=== PATIENT | female | born 1990 | race African-American/Black ===

== ENCOUNTER 2016-11-18 20:23 | Emergency (ER) | payer SELFPAY ==
[2016-11-18 20:31] VITALS: TEMP 98.3; BMI 25.1
[2016-11-18 21:12] LABS: URINE APPEARANCE CLEAR; URINE BILIRUBIN NEGATIVE (NEGATIVE); URINE BLOOD NEGATIVE (NEGATIVE); URINE COLOR YELLOW; URINE GLUCOSE (UA) NEGATIVE (NEGATIVE); URINE KETONE NEGATIVE (NEGATIVE); URINE LEUK ESTERASE NEGATIVE (NEGATIVE); URINE NITRITE NEGATIVE (NEGATIVE); URINE PROTEIN NEGATIVE (NEGATIVE); URINE UROBILINOGEN NEGATIVE mg/dL (0.2-1.0)
[2016-11-18] MEDS ORDERED: AZITHROMYCIN 1 GM PACKET PO ONE (21:31)
[2016-11-18] MEDS ORDERED: AZITHROMYCIN 1 GM PACKET ONE (21:35)
[2016-11-18] MEDS ORDERED: cefTRIAXone SODIUM 1 GM VIAL ONE (21:35)
--- NOTE | 2016-11-18 21:41 | PDOC ---
History of Present Illness - General Chief Complaint: Vaginal Bleeding Stated Complaint: VAGINAL BLEEDING Time Seen by Provider: 11/18/16 20:33 History Source: Patient Exam Limitations: No Limitations - History of Present Illness Travel History: No Initial Comments: 11/18/16 21:32 26yo Female patient with no significant past medical history presents to ED c/o vaginal spotting for past 5 days. Patient states bleeding occurs during sex then resolves. She states having unprotected sex with partner of 1 year. LNMP: . She denies abd pain, n/v/d, pain during sex, dysuria, hematuria, back pain, diff breathing, rash, or any other complaints. She state she is not taking any medications at this time, and does have a PCP or [facility] [employer]. Timing/Duration: reports: getting worse Quality: reports: moderate Abdominal Pain Onset Location: denies: RUQ, LUQ, RLQ, LLQ, epigastric, periumbilical, suprapubic, generalized abdomen, flank, unknown, other Pain Radiation: denies: no radiation, RUQ, LUQ, RLQ, LLQ, epigastric, periumbilical, flank, groin, scapula, shoulder, chest, back, other Activities at Onset: denies: none, exertion, emotional upset, rest, sleep, no specific activity, eating, working, sexual intercourse, other Treatment Prior to Arrive: worse with: analgesics, antacids, cold pack, heat, laxative, enema, other Aggravating Factors: worse with: None, Defecation, Eating, Emotional upset, Exertion, [place], Movement, Voiding, Change in position Alleviating Factors: worse with: None, Belching, Shallow Breathing, Defecation, Eating, Holding Breath, Passing Gas, Change in Position, Rest, Voiding, Vomiting Past History - Travel Traveled outside of the country in the last 30 days: No Close contact w/someone who was outside of country & ill: No - Past Medical History Allergies/Adverse Reactions: Allergies Allergy/AdvReac Type Severity Reaction Status Date / Time No Known Allergies Allergy Verified 11/18/16 20:29 Home Medications: Ambulatory Orders Doxycycline Hyclate [Vibramycin -] 100 mg PO BID #14 cap 11/18/16 Metronidazole [Flagyl -] 2,000 mg PO ONCE #4 tablet 11/18/16 - Reproductive History Is Patient Now?: No (#): 0 - Psycho/Social/Smoking Cessation Hx Suicidal Ideation: No Smoking History: Never smoked Abd/GI Specific PMHX - Complaint Specific PMHX Colitis: No Diverticulitis: No Gall Bladder Disease: No GERD: No Hepatitis: No Irritable Bowel Synd (IBS): No Pancreatitis: No GI Ulcer Disease: No Review of Systems - Review of Systems Able to Perform ROS?: Yes Is the patient limited [place] proficient: No ABD/GI: No: Diarrhea, Nausea, Vomiting, Abdominal cramping : Yes: Discharge, Other (Vaginal Spotting). No: Burning, Dysuria, Frequency, Flank Pain, Hematuria, Incontinence, Pain, Urgency Musculoskeletal: No: Back Pain Integumentary: No: Erythema All Other Systems: Reviewed and Negative *Physical Exam - Vital Signs Last Vital Signs Temp Pulse Resp BP Pulse Ox 98.3 F 79 18 148/90 95 11/18/16 20:29 11/18/16 20:29 11/18/16 20:29 11/18/16 20:29 11/18/16 20:29 - Physical Exam General Appearance: Yes: Nourished, Appropriately Dressed. No: Apparent Distress, Mild Distress, Moderate Distress, Severe Distress Respiratory/Chest: positive: Lungs Clear, Normal Breath Sounds. negative: Chest Tender, Respiratory Distress, Accessory Muscle Use, Labored Respiration, Rapid RR, Rales, Rhonchi, Stridor, Wheezing Cardiovascular: positive: Regular Rhythm, Regular Rate. negative: Edema, JVD Female Pelvic Exam: positive: normal external exam, cervical os closed, normal adnexa, discharge (Copious amounts of yellow discharge with odor), vaginal bleeding (Moderate Spotting, cervix with bleeding when swabbed. ). negative: CMT, lesions, Bartholin mass, adnexal tenderness Gastrointestinal/Abdominal: positive: Normal Bowel Sounds, Soft. negative: Distended, Guarding, Rebound, Tenderness Musculoskeletal: positive: Normal Inspection. negative: CVA Tenderness Extremity: positive: Normal Capillary Refill, Normal Inspection, Normal Range of Motion. negative: Pedal Edema, Swelling, Calf Tenderness, Erythema, Inflammation Integumentary: positive: Normal Color, Dry, Warm Neurologic: positive: sheep shearer II-XII NML intact, Fully Oriented, Alert, Normal Mood/ Affect, Normal Response, Motor Strength 5/5 ED Treatment Course - ADDITIONAL ORDERS Additional order review: Laboratory Results 11/18/16 21:00 Urine Color Yellow Urine Appearance Clear Urine pH 5.0 Urine Protein Negative Urine Glucose (UA) Negative Urine Ketones Negative Urine Blood Negative Urine Nitrite Negative Urine Bilirubin Negative Urine Urobilinogen Negative Ur Leukocyte Esterase Negative Urine HCG, Qual Negative *DC/Admit/Observation/Transfer Diagnosis at time of Disposition: Vaginal bleeding, STD (sexually transmitted disease) - Discharge Dispostion Disposition: HOME Condition at time of disposition: Stable Admit: No - Prescriptions Prescriptions: Metronidazole [Flagyl -] 2,000 mg PO ONCE #4 tablet Doxycycline Hyclate [Vibramycin -] 100 mg PO BID #14 cap - Patient Instructions Printed Discharge Instructions: DI for Trichomoniasis, DI for Chlamydia Additional Instructions: 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 Take medications as prescribed. Return if symptoms worsen or any concerns for further evaluation. Uncomplicated genital chlamydial infections include urethritis in men and urethritis and cervicitis in women. The majority of uncomplicated genital chlamydial infections are asymptomatic in men and women; these infections may only be found after screening, but should be treated promptly. No sex for 1 week. If you do decide to have sex, use condoms. Print Language: [place]
[2016-11-18 23:01] VITALS: BP 138/65; PULSE 69
== END 2016-11-18 23:02 | disposition home or self-care (01) ==
LOC: JER 20:23
DX: N93.8 Other specified abnormal uterine and vaginal bleeding (principal); A63.8 Other specified predominantly sexually transmitted diseases
CPT/HCPCS: 36415; 81003; 84703; 87070; 87086; 87205; 87491; 87591; 99283-25